=== PATIENT | male | born 1970 | race Caucasian/White ===

== ENCOUNTER 2022-09-24 15:22 | Outpatient (OUT) | payer OTHER, SELFPAY ==
--- NOTE | 2022-09-24 14:50 | US_ITS ---
[address] [address] Patient Name: AALIYAH JJ MRN: [id number] date: 1970 Sex: M Assigned Patient Location: Current Patient Location: US Accession/Order Number: [id number] Exam Date: 09/24/2022 15:00 Report Date: 09/25/2022 07:51 At the request of: SALLY WILLAMS Procedure: US thyroid EXAMINATION: US thyroid HISTORY: ENLARGED THYROID COMPARISON: No relevant comparison available. FINDINGS: RIGHT LOBE: Normal size and echotexture. Lobe size: 4.7 x 1.8 x 1.5 cm LEFT LOBE: Contains a 2.7 x 1.8 x 2.1 cm TR 4 nodule within mid lobe. Lobe size: 4.3 x 2.5 x 2.7 cm ISTHMUS: Normal size and echotexture. Thickness: 2 mm IMPRESSION: 1. Suspicious 2.7 cm TR 4 nodule within left mid lobe. Ultrasound-guided fine needle aspiration is recommended. TR4 (moderately suspicious): If > 1.0 cm Follow-up ultrasound in 1, 2, 3, and 5 years. If > 1.5 cm fine needle aspiration (FNA). Electronically authenticated by: DARRELL KHAN Date: 09/25/2022 07:51
[2022-09-24 21:30] LABS: Free T3 4.09 pg/mL (2.18-3.98); Thyroid Stimulating Hormone 1.908 uIU/mL (0.358-3.740)
[2022-09-24 23:46] LABS: Free T4 0.91 ng/dL (0.76-1.46)
== END 2022-09-24 15:23 ==
PROVIDERS: PCP Family Medicine; Visit Provider Internal Medicine
DX: E04.9 Nontoxic goiter, unspecified (principal); E04.1 Nontoxic single thyroid nodule
CPT/HCPCS: 36415; 76536; 84439; 84443; 84481